=== PATIENT | female | born 2005 | race Caucasian/White ===

== ENCOUNTER 2025-03-20 15:07 | Emergency (ER) | payer MEDICAID, OTHER ==
[~2025-03-20] VITALS: Ht 162.6 cm; Wt 46.6 kg
--- NOTE | 2025-03-20 15:20 | ED.PDOC ---
History of Present Illness HPI Comments 19-year-old female came to the ER stating that she has been having right-sided flank pain radiating to the right lower quadrant for the past two days. Denies any nausea vomiting diarrhea. She was seen in urgent care yesterday for which she was diagnosed with possible urinary tract infection for which they gave her antibiotics. She did started antibiotics last night. She continues to have pain. She also states that she has been having burning on urination for a week. She does use marijuana. Denies any other symptoms. Chief Complaint: Flank Pain Time Seen by MD: 15:09 Reviewed Notes: Nurses Notes, Medications, Allergies Allergies: Coded Allergies: NO KNOWN ALLERGIES (Unverified , 03/20/25) Information Source: Patient Mode of Arrival: Ambulatory Severity: Moderate Timing: Days Duration: Since onset Past Medical History PAST MEDICAL HISTORY: Denies Surgical History: Denies all surgeries COMPUTATIONAL MATHEMATICIAN History: No Pertinent COMPUTATIONAL MATHEMATICIAN History Social History Smoker: Non-Smoker Alcohol: Denies ETOH Use Drugs: Marijuana Constitutional: denies: chills, diaphoresis, fatigue, fever, malaise, sweats, weakness, others EENTM: denies: blurred vision, double vision, ear bleeding, ear discharge, ear drainage, ear pain, ear ringing, eye pain, eye redness, hearing loss, mouth pain, mouth swelling, nasal discharge, nose bleeding, nose congestion, nose pain, photophobia, tearing, throat pain, throat swelling, voice changes, others Respiratory: denies: cough, hemoptysis, orthopnea, SOB at rest, shortness of breath, SOB with excertion, stridor, wheezing, others Cardiovascular: denies: chest pain, dizzy spells, diaphoresis, Dyspnea on exertion, edema, irregular heart beat, left arm pain, lightheadedness, palpitations, PND, syncope, others Gastrointestinal: reports: abdominal pain; denies: abdomen distended, blood streaked bowels, constipated, diarrhea, dysphagia, difficulty swallowing, hematemesis, melena, nausea, poor appetite, poor fluid intake, rectal bleeding, rectal pain, vomiting, others Genitourinary: reports: flank pain (Right); denies: abnormal vagina bleeding, burning, dyspareunia, dysuria, frequency, hematuria, incontinence, pain, , vagina discharge, urgency, others Neurological: denies: dizziness, fainting, headache, left sided numbness, left sided weakness, numbness, paresthesia, pre-existing deficit, right sided numbness, right sided weakness, seizure, speech problems, tingling, tremors, weakness, others Musculoskeletal: denies: back pain, gout, joint pain, joint swelling, muscle pain, muscle stiffness, neck pain, others Integumetry: denies: bruises, change in color, change in hair/nails, dryness, laceration, lesions, lumps, rash, wounds, others Allergic/Immunocompromised: denies: Difficulty Healing, Frequent Infections, Hives, Itching, others Hematologic/Lymphatic: denies: anemia, blood clots, easy bleeding, easy bruising, swollen glands, others Endocrine: denies: excessive hunger, excessive sweating, excessive thirst, excessive urination, flushing, intolerance to cold, intolerance to heat, unexplained weight gain, unexplained weight loss, others Psychiatric: denies: anxiety, bipolar disorder, depression, hopeless, panic disorder, schizophrenia, sleepless, suicidal, others Physical Exam General Appearance: Moderate Distress HEENT: Normal ENT Inspection, Pharynx Normal, TMs Normal Neck: Full Range of Motion, Non-Tender, Normal, Normal Inspection Respiratory: Chest Non-Tender, Lungs Clear, No Accessory Muscle Use, No Respiratory Distress, Normal Breath Sounds Cardiovascular: No Edema, No JVD, No Murmur, No Gallop, Normal Peripheral Pulses, Regular Rate/Rhythm Breast Exam: Deferred Gastrointestinal: No Organomegaly, Non Tender, No Pulsatile Mass, Normal Bowel Sounds, Soft Genitalia: Deferred Pelvic: Deferred Rectal: Deferred Extremities: No calf tenderness, Normal capillary refill, Normal inspection, Normal range of motion, Non-tender, No pedal edema Musculoskeletal : Apperance: Normal Neurologic: Alert, hearing specialist II-XII nml as Tested, No Motor Deficits, Normal Affect, Normal Mood, No Sensory Deficits Cerebellar Function: Normal Reflexes: Normal Skin: Dry, Normal Color, Warm Peripheral Pulses: 3+ Radial (R), 3+ Radial (L) Lymphatic: No Adenopathy Was a procedure done? Was a procedure done?: No Differential Dx Considerations may include: Kidney stone Electrolyte imbalance X-Ray, Labs, Meds, VS Vital Signs Date Time Temp Pulse Resp B/P (MAP) Pulse Ox O2 Delivery O2 Flow Rate FiO2 03/20/25 15:14 98.0 97 16 128/81 (97) 98 98.0 Lab Test 03/20/25 15:33 Range/Units Urine Color Yellow Yellow Urine Clarity Turbid H Clear Urine pH 8.5 5.0-9.0 Urine Specific [place] 1.020 1.001-1.035 Urine Protein 1+ H Negative Urine Ketones 1+ H Negative Urine Blood Negative Negative /uL Urine Nitrite Negative Negative Urine Bilirubin Negative Negative Urine Urobilinogen 2 H Negative mg/dL Urine Leukocyte Esterase Negative Negative /uL Urine RBC 3 0 - 4 /hpf Urine Microscopic WBC < 1 0-5 /HPF Urine Squamous Epithelial Cells Few <5 /hpf Urine Amorphous Crystals Few None Seen /hpf Urine Bacteria None seen None Seen /hpf Urine Glucose Normal Normal mg/dL Patient alert. Complaining of right flank pain. Vitals stable. Answering all questions. Reviewed her history. Explained to the patient. Continue monitoring. CT scan of the abdomen does show a kidney stone. Establish intravenous access. Was given fluids. Was given pain medication. Was told to follow up with her primary care physician. Was told to come back if there is any problem. Time of 1ST Reevaluation: 15:19 Reevaluation 1ST: Unchanged Time of 2ND Reevaluation: 16:14 Reevaluation 2ND: Improved Patient Education/Counseling: Diagnosis, Treatment, Prognosis, Need For Follow Up Family Education/Counseling: No Family Present Departure 1 Departure Time of Disposition: 15:20 Impression: Primary Impression: Kidney stone Disposition: 01 HOME / SELF CARE / HOMELESS Condition: Good e-Prescriptions Ibuprofen (Ibuprofen 200) 200 Mg Tab 200 MG PO DAILY for 5 Days, #5 TAB Prov: SALOMÓN ALFARO MD 03/20/25 Discharged With: Self Critical Care Note Critical Care Time?: No Stability Stability form required: No Heart Score Heart Score: Heart Score Response (Comments) Value History N/A 0 EKG N/A 0 Age N/A 0 Risk Factors N/A 0 Troponin N/A 0 Total 0 SALOMÓN ALFARO MD March 20, 2025 15:20
[2025-03-20 15:38] LABS: Urine Bacteria None Seen /hpf (None Seen)
[2025-03-20 15:46] LABS: Urine Amorphous Crystal FEW /hpf (None Seen); Urine Blood Negative /uL (Negative); Urine Clarity Turbid (Clear); Urine Color Yellow (Yellow); Urine Protein, UAD 1+ (Negative); Urine Squamous Epithelial Cell FEW /hpf (<5); Urine Urobilinogen 2 mg/dL (Negative); Urine WBC < 1 /HPF (0-5); Urine pH 8.5 (5.0-9.0)
--- NOTE | 2025-03-20 15:57 | DVH ---
CT CT AB PEL WO CON-NO ORAL OR IV INDICATION: stone EXAM DATE: 03/20/2025 03:22 PM COMPARISON: None RADIATION DOSE: CTDIvol: 5.07 mGy, DLP: 238.84 mGy*cm PROCEDURE: Helical CT images were obtained of the abdomen and pelvis without IV contrast Sagittal and coronal reconstructions are provided. ORAL CONTRAST: None. ADDITIONAL IMAGES / REFORMATS: None All C T scans at this medical facility are performed using dose modulation techniques as appropriate to a p erformed exam including the following: Automated exposure control was utilized; adjustment of the MA and/or KV according to patient size; and use of iterative reconstruction technique. FINDINGS: LUNG BASE: Normal. LIVER: Normal. GALLBLADDER AND BILIARY TREE: No calcified gallstones. Normal caliber wall. No intra- or extrahepatic biliary ductal dilation. PANCREAS: Normal. SPLEEN: Normal. BOWEL: Normal. Partially visualized appendix appears normal. ADRENALS: Normal. KIDNEYS AND URETER: Punctate nonobstructive left kidney stone. BLADDER: Normal. REPRODUCTIVE ORGANS: Normal. LYMPH NODES:No lymphadenopathy. PERITONEUM: No ascites or free air. No other fluid collection. Trace pelvic fluid is likely physiolog ic. VESSELS: Normal. RETROPERITONEUM: Normal. ABDOMINAL WALL: Normal. BONES: Normal. IMPRESSION: No acute intraabdominal abnormality. Punctate nonobstructive left kidney stone.
[2025-03-20] MEDS ORDERED: IBUP-1678 PO (16:15)
[2025-03-20 16:28] VITALS: BP 132/59; PULSE 83; RESP 20; TEMP 98.8; O2SAT 99
[2025-03-20] MEDS: KETOROLAC TROMETH 30 MG/ML 1ML VIAL IV ONE (16:35)
[2025-03-20] MEDS: SODIUM CHLORIDE 0.9% 1,000 ML IV ONE (16:35)
== END 2025-03-20 16:39 | disposition home or self-care (01) ==
LOC: ER 15:07
DX: N20.0 Calculus of kidney (principal); F12.90 Cannabis use, unspecified, uncomplicated
CPT/HCPCS: 74176; 81001

== ENCOUNTER 2025-04-05 10:47 | Emergency (ER) | payer MEDICAID ==
[~2025-04-05] VITALS: Ht 162.6 cm; Wt 44.0 kg
[~2025-04-05 10:47] MED LIST: IBUP-1678 PO
[2025-04-05 10:52] VITALS: TEMP 98.4
--- NOTE | 2025-04-05 11:22 | ED.PDOC ---
General HPI Comments 19 year old female presents to the ED with a chief complaint of bilateral flank pain onset 2 days. Patient states she was seen in this ED 2 weeks ago, was diagnosed with kidney stones. For the past 2 days, patient has been experiencing fevers, chills, nausea, vomiting, diarrhea, loss of appetite, bilateral flank pain. Patient has not been able to follow up with PCP due to insurances issues. PMHx kidney stones. Denies chest pain, shortness of breath, dysuria, hematuria, hematemesis, melena, blood in stool, cough, congestion. No other symptoms or modifying factors present at this time. Chief Complaint: Flank Pain Time Seen by MD: 11:12 Primary Care Provider: NONE Reviewed notes: Medications, Allergies Allergies: Coded Allergies: NO KNOWN ALLERGIES (Unverified , 03/20/25) Home Meds Active Scripts Ibuprofen (Ibuprofen 200) 200 Mg Tab, 200 MG PO DAILY for 5 Days, #5 TAB Prov:SALOMÓN ALFARO MD 03/20/25 Information Source: Patient Mode of Arrival: Ambulatory Severity: Moderate Timing: Days Duration: Since onset Prehospital treatment: None Onset: Spontaneous Symptoms: None History of: Kidney stone, Other (pyleonephritis ) Location: (R) Flank, (L)Flank Modifying factors: None associated signs and symptoms: Fever, Nausea, Vomiting, Flank Pain Past Medical History PAST MEDICAL HISTORY: Denies Surgical History: Denies all surgeries SHOP LABORER History: No Pertinent SHOP LABORER History Social History Smoker: Non-Smoker Alcohol: Denies ETOH Use Drugs: Marijuana Lives In: Home Constitutional: reports: chills, fever; denies: diaphoresis, fatigue, malaise, sweats, weakness, others EENTM: denies: blurred vision, double vision, ear bleeding, ear discharge, ear drainage, ear pain, ear ringing, eye pain, eye redness, hearing loss, mouth pain, mouth swelling, nasal discharge, nose bleeding, nose congestion, nose pain, photophobia, tearing, throat pain, throat swelling, voice changes, others Respiratory: denies: cough, hemoptysis, orthopnea, SOB at rest, shortness of breath, SOB with excertion, stridor, wheezing, others Cardiovascular: denies: chest pain, dizzy spells, diaphoresis, Dyspnea on exertion, edema, irregular heart beat, left arm pain, lightheadedness, palpitations, PND, syncope, others Gastrointestinal: reports: diarrhea, nausea, vomiting; denies: abdomen distended, abdominal pain, blood streaked bowels, constipated, dysphagia, difficulty swallowing, hematemesis, melena, poor appetite, poor fluid intake, rectal bleeding, rectal pain, others Genitourinary: reports: flank pain; denies: abnormal vagina bleeding, burning, dyspareunia, dysuria, frequency, hematuria, incontinence, pain, , vagina discharge, urgency, others Neurological: denies: dizziness, fainting, headache, left sided numbness, left sided weakness, numbness, paresthesia, pre-existing deficit, right sided numbness, right sided weakness, seizure, speech problems, tingling, tremors, weakness, others Musculoskeletal: denies: back pain, gout, joint pain, joint swelling, muscle pain, muscle stiffness, neck pain, others Integumetry: denies: bruises, change in color, change in hair/nails, dryness, laceration, lesions, lumps, rash, wounds, others Allergic/Immunocompromised: denies: Difficulty Healing, Frequent Infections, Hives, Itching, others Hematologic/Lymphatic: denies: anemia, blood clots, easy bleeding, easy bruising, swollen glands, others Endocrine: denies: excessive hunger, excessive sweating, excessive thirst, excessive urination, flushing, intolerance to cold, intolerance to heat, unexplained weight gain, unexplained weight loss, others Psychiatric: denies: anxiety, bipolar disorder, depression, hopeless, panic disorder, schizophrenia, sleepless, suicidal, others All Other Systems: Reviewed and Negative Physical Exam General Appearance: Moderate Distress, Normal HEENT: Normal ENT Inspection, Pharynx Normal, TMs Normal Neck: Full Range of Motion, Non-Tender, Normal, Normal Inspection Respiratory: Chest Non-Tender, Lungs Clear, No Accessory Muscle Use, No Respiratory Distress, Normal Breath Sounds Cardiovascular: No Edema, No JVD, No Murmur, No Gallop, Normal Peripheral Pulses, Regular Rate/Rhythm Breast Exam: Deferred Gastrointestinal: No Organomegaly, Non Tender, No Pulsatile Mass, Normal Bowel Sounds, Soft Genitalia: Deferred Pelvic: Deferred Rectal: Deferred Extremities: No calf tenderness, Normal capillary refill, Normal inspection, Normal range of motion, Non-tender, No pedal edema Musculoskeletal : Apperance: Normal Neurologic: Alert, malt house kiln operator II-XII nml as Tested, No Motor Deficits, Normal Affect, Normal Mood, No Sensory Deficits Cerebellar Function: Normal Reflexes: Normal Skin: Dry, Normal Color, Warm Peripheral Pulses: 3+ Radial (R), 3+ Radial (L) Lymphatic: No Adenopathy Was a procedure done? Was a procedure done?: No Differential Diagnosis Kidney stone (Female): Musculoskeletal pain, Urinary obstruction, Urolithiasis X-Ray, Labs, Meds, VS Vital Signs Date Time Temp Pulse Resp B/P (MAP) Pulse Ox O2 Delivery O2 Flow Rate FiO2 04/05/25 12:11 109 16 124/70 (88) 95 04/05/25 11:31 Room Air* 0 21 04/05/25 10:52 98.4 130 20 160/89 (112) 95 98.4 Lab Test 04/05/25 10:57 Range/Units Urine Color Yellow Yellow Urine Clarity Turbid H Clear Urine pH 7.0 5.0-9.0 Urine Specific [place] 1.021 1.001-1.035 Urine Protein Negative Negative Urine Ketones Negative Negative Urine Blood Negative Negative /uL Urine Nitrite Negative Negative Urine Bilirubin Negative Negative Urine Urobilinogen Normal Negative mg/dL Urine Leukocyte Esterase 2+ Negative /uL Urine RBC 3 0 - 4 /hpf Urine Microscopic WBC 5 0-5 /HPF Urine Squamous Epithelial Cells Many <5 /hpf Urine Bacteria Few H None Seen /hpf Urine Mucus Few None Seen Urine Glucose Normal Normal mg/dL Urine Test Positive Negative Current Medications Medications (Trade) Dose Ordered Sig/Billie Route Start Time Stop Time Status Last Admin Ondansetron HCl (Zofran) 4 mg ONCE ONCE IV 04/05/25 11:15 04/05/25 11:16 DC 04/05/25 11:30 Sodium Chloride 1,000 ml @ 1,000 mls/hr Q1H ONCE IV 04/05/25 11:15 04/05/25 12:14 DC 04/05/25 11:27 Ketorolac Tromethamine (Toradol Injection) 30 mg ONCE ONCE IV 04/05/25 12:00 04/05/25 12:01 DC 04/05/25 11:57 Patient alert. Complaining of flank pain. Vitals stable. Answering questions. No leg swelling. No shortness a breath. No chest pain. She is anxious. Establish intravenous access. Was given fluids. She started to feel better after we gave fluids. Reviewed her previous visit. She has been taking naproxen for many weeks. Approximate naproxen other nonsteroidal anti-inflammatory medication for the past few weeks. Denies abdominal cramping. No spotting. Explained to this patient not to take any more nonsteroidal anti-inflammatory medication. Gave information for primary care physician. Explained to the patient. Was told to follow up with her primary care physician. Was told to come back if there is any problem. Time of 1ST Reevaluation: 11:42 Reevaluation 1ST: Unchanged Time of 2ND Reevaluation: 12:54 Reevaluation 2ND: Improved Patient Education/Counseling: Diagnosis, Treatment, Prognosis Family Education/Counseling: No Family Present Departure 1 Departure Time of Disposition: 12:56 Impression: Primary Impression: Urinary tract infection Qualified Codes: N30.00 - Acute cystitis without hematuria Additional Impression: Normal Qualified Codes: Z34.90 - Encounter for supervision of normal , unspecified, unspecified trimester Disposition: 01 HOME / SELF CARE / HOMELESS Condition: Good e-Prescriptions Cephalexin (KEFLEX CAPSULE) 250 Mg Cp 250 MG PO QID for 5 Days, #20 BOTTLE Prov: SALOMÓN ALFARO MD 04/05/25 Discharged With: Self Critical Care Note Critical Care Time?: No Stability Stability form required: No Heart Score Heart Score: Heart Score Response (Comments) Value History N/A 0 EKG N/A 0 Age N/A 0 Risk Factors N/A 0 Troponin N/A 0 Total 0 I personally scribed for SALOMÓN ALFARO MD ([email or web address]) on 04/05/25 at 11:22. Electronically submitted by Josiane Guzman ([email or web address]). SALOMÓN ALFARO MD April 05, 2025 11:22
[2025-04-05] MEDS: SODIUM CHLORIDE 0.9% 1,000 ML IV ONE (11:27)
[2025-04-05] MEDS: MORPHINE SULFATE 4 MG/ML SYR/VIAL IV ONE (11:30)
[2025-04-05] MEDS: ONDANSETRON HCL 4 MG/2 ML VIAL IV ONE (11:30)
[2025-04-05] MEDS: KETOROLAC TROMETH 30 MG/ML 1ML VIAL IV ONE (11:57)
[2025-04-05 12:11] VITALS: BP 124/70; PULSE 109; RESP 16; O2SAT 95
[2025-04-05 13:12] LABS: Urine Bacteria FEW /hpf (None Seen); Urine Blood Negative /uL (Negative); Urine Clarity Turbid (Clear); Urine Color Yellow (Yellow); Urine Mucus FEW (None Seen); Urine Protein, UAD Negative (Negative); Urine Specific Gravity 1.021 (1.001-1.035); Urine Squamous Epithelial Cell MANY /hpf (<5); Urine Urobilinogen Normal (Negative); Urine WBC 5 /HPF (0-5)
[2025-04-05] MEDS ORDERED: CEPH250C PO (13:20)
== END 2025-04-05 13:32 | disposition home or self-care (01) ==
LOC: ER 10:47
DX: O23.40 Unspecified infection of urinary tract in pregnancy, unspecified trimester (principal); N39.0 Urinary tract infection, site not specified; Z79.1 Long term (current) use of non-steroidal anti-inflammatories (NSAID); Z3A.00 Weeks of gestation of pregnancy not specified
CPT/HCPCS: 81001; 81025; 96361; 96374; 96375; 99284; J1885; J2405; J7030

== ENCOUNTER 2025-10-27 22:37 | Observation (INO) | payer MEDICAID ==
[~2025-10-27] VITALS: Ht 160 cm; Wt 59.0 kg
[~2025-10-27 22:37] MED LIST changes: +CEPH250C PO
[2025-10-27] MEDS ORDERED: TERBUTALINE SULFATE 1 MG/ML 1ML VIAL SC PRN (23:30)
[2025-10-27] MEDS ORDERED: LACTATED RINGER'S 1,000 ML IV SCH (23:30)
[2025-10-27] MEDS ORDERED: CEPH250C PO (23:33)
[2025-10-27] MEDS ORDERED: PREN-96 PO (23:33)
[2025-10-27] MEDS: TERBUTALINE SULFATE 1 MG/ML 1ML VIAL SC ONE (23:35)
[2025-10-28] MEDS ORDERED: LACTATED RINGER'S 1,000 ML IV SCH (01:00)
[2025-10-28 01:05] LABS: Urine Protein, UAD Negative (Negative)
--- NOTE | 2025-10-28 06:51 | DVHDS2 ---
Physician Discharge Progress N Final Diagnosis: UTI Operations or Procedures: Operations or Procedures S: 20yo IUP@34.6wks presents to OB triage with c/o back pain/UCs and burning/frequency when voiding. Denies LOF/VB/TRUJILLO/vision changes/RUQ pain. Endorses +FM. Pt does not drink enough water. [facility] in [place], last visit 1 month ago but is switching care to Dr. Garcia, has appt on 11/02/25. [facility]NC uncomplicated per pt. No record available for review. PMH - kidney stones and anxiety PSH - denies O: VSS, afebrile NST reactive TOCO: UCs noted initially, then after treatment no UCs noted 1L LR IV fluid bolus and terbutaline sq x1 given, pt denies UCs afterwards SVE: declined urine C&S sent Laboratory Tests Test 10/27/25 23:30 Range/Units Urine Color Light-yellow Yellow Urine Clarity Turbid H Clear Urine pH 7.0 5.0-9.0 Urine Specific [place] 1.010 1.001-1.035 Urine Protein Negative Negative Urine Ketones Negative Negative Urine Blood Negative Negative /uL Urine Nitrite Negative Negative Urine Bilirubin Negative Negative Urine Urobilinogen Normal Negative mg/dL Urine Leukocyte Esterase 2+ Negative /uL Urine RBC 1 0 - 4 /hpf Urine Microscopic WBC 4 0-5 /HPF Urine Squamous Epithelial Cells Few <5 /hpf Urine Bacteria None seen None Seen /hpf Urine Glucose Normal Normal mg/dL A: 20yo IUP@34.6wks UTI P: D/C home Rx sent for keflex Recommended daily womens probiotic supplement Discussed UTI prevention tips with pt Encouraged to drink 1 gallon of water a day. FKC/PTL/preE precautions reviewed Dr. Garcia consulted, agrees with POC. Condition on Discharge: Stable Disposition: Home Discharge Instructions: Diet: Regular Activity: No Restrictions, As Tolerated Medications: CEFALEXIN 500MG BY MOUTH TWICE DAILY X7 DAYS. OTC PROBIOTIC DIRECTED Follow Up Care: Specialist: f/u with Dr. Garcia in office as scheduled on 11/02/25 Discharge Statement: "Patient was advised to return to the ER or call 911 if any headaches, dizziness, shortness of breath, chest pain, abdominal pain, bleeding, fevers, or worsening of medical condition. Patient was counseled about treatment plan, medications, possible side effects, patientverbalized understanding. All questions were answered to the best of my ability. This discharge took greater then 30 minutes in planning, reviewing documentation, counseling the patient, and discussing with other team members." Visit Coding OBGYN Date of Service: Oct 28, 2025 Billing Provider: HELEN JAIMES CNM TYING IN MACHINE OPERATOR Common Visit Codes: 06986-RNLQVCA OBS CARE (HIGH) TYING IN MACHINE OPERATOR Procedure Codes: 86750-20- NON-STRESS TEST HELEN JAIMES CNM Oct 28, 2025 06:51
== END 2025-10-28 00:54 | disposition home or self-care (01) ==
LOC: LDRP 22:37
PROVIDERS: ADMIT Obstetrics & Gynecology; ATTEND Obstetrics & Gynecology
DX: O23.43 Unspecified infection of urinary tract in pregnancy, third trimester (principal); N39.0 Urinary tract infection, site not specified; O99.891 Other specified diseases and conditions complicating pregnancy; M54.9 Dorsalgia, unspecified; Z3A.34 34 weeks gestation of pregnancy; Z98.890 Other specified postprocedural states
CPT/HCPCS: 59025; 81001; 81002; 87086; 96360; 96361; 96372; A4649; G0378; J3105